=== PATIENT | male | born 1955 | race Caucasian/White ===

== ENCOUNTER 2019-05-25 07:37 | Emergency (ER) | payer OTHER ==
[~2019-05-25] VITALS: Ht 170.2 cm; Wt 100.7 kg
[2019-05-25 07:40] VITALS: BP 149/86
[2019-05-25] MEDS ORDERED: KETOROLAC 30 MG/ML VIAL IM ONE (08:15)
--- NOTE | 2019-05-25 08:15 | NUR ---
C/O CENTER FOREHEAD LAC X1 DAY. PT STATES HE WAS HELPING A FRIEND MOVE SOME BOXES AND HE HIT HIS HEAD ON ONE THAT HAD METAL ON IT, AND IT CUT HIS FOREHEAD. DENIES LOC. NO BLEEDING AT THIS. PT HAS A PURPLE CREAM ON IT THAT HE STATES IS USED FOR HEALING. PT STATES HE HAD A TDAP 2 MONTHS AGO [facility] WHEN HE CUT HIS LEG. HX: DM, HTN RX: METFORMIN 500, GABAPENTIN, SIMVASTATIN, LISINOPRIL, GLIPIZIDE, VIT D
--- NOTE | 2019-05-25 08:22 | NUR ---
PT TO XRAY VIA WHEELCHAIR.
--- NOTE | 2019-05-25 08:32 | NUR ---
PT RETURNED FROM XRAY.
[2019-05-25 08:56] VITALS: BP 152/80
--- NOTE | 2019-05-25 09:06 | NUR ---
Patient discharged with v/s stable. Written and verbal after care instructions given and explained. Patient alert, oriented and verbalized understanding of instructions. Ambulatory with steady gait. All questions addressed prior to discharge. ID band removed. Patient advised to follow up with PMD. Rx of MOTRIN, NEOSPORIN given. Patient educated on indication of medication including possible reaction and side effects. Opportunity to ask questions provided and answered.
== END 2019-05-25 08:56 | disposition home or self-care (01) ==
LOC: MED 07:37
DX: S01.81XA Laceration without foreign body of other part of head, initial encounter (principal); S16.1XXA Strain of muscle, fascia and tendon at neck level, initial encounter; M54.9 Dorsalgia, unspecified; E11.9 Type 2 diabetes mellitus without complications; I10 Essential (primary) hypertension; W22.8XXA Striking against or struck by other objects, initial encounter; Y93.89 Activity, other specified; Y92.89 Other specified places as the place of occurrence of the external cause; Y99.8 Other external cause status
CPT/HCPCS: 72040; 96372; 99283; J1885